=== PATIENT | female | born 2000 | race American Indian/Alaskan Native ===

== ENCOUNTER 2021-07-16 18:37 | Emergency (ER) | payer OTHER, BC ==
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
[2021-07-16 22:05] VITALS: BP 118/80
== END 2021-07-16 22:03 | disposition home or self-care (01) ==
LOC: ED 18:37
DX: S16.1XXA Strain of muscle, fascia and tendon at neck level, initial encounter (principal); V87.7XXA Person injured in collision between other specified motor vehicles (traffic), initial encounter; Y93.89 Activity, other specified; Y92.488 Other paved roadways as the place of occurrence of the external cause; Y99.8 Other external cause status
CPT/HCPCS: 72040; 99283